=== PATIENT | female | born 1965 | race Caucasian/White ===

== ENCOUNTER 2024-08-01 12:42 | Observation (INO) | payer OTHER ==
[2024-08-01] VITALS (11 sets, daily range): BP systolic 125–142; BP diastolic 67–79
[~2024-08-01] VITALS: Ht 167.6 cm; Wt 83.9 kg
[2024-08-01] MEDS ORDERED: Ondansetron HCl 2 MG / ML 2ML Vial IV PRN ×2 (13:30→17:20)
[2024-08-01 13:46] LABS: BASOPHILS ABSOLUTE AUTO 0.06 K/mm3 (0.00-0.23); BASOPHILS PERCENT AUTO 0 % (0-2); EOSINOPHILS ABSOLUTE AUTO 0.05 K/mm3 (0.00-0.68); EOSINOPHILS PERCENT AUTO 0 % (0-6); Hematocrit 40.2 % (33.0-51.0); Hemoglobin 13.6 g/dL (11.5-16.0); IMMATURE GRAN ABSOLUTE AUTO 0.06 K/mm3 (0.00-0.10); IMMATURE GRAN PERCENT AUTO 0 % (0-1); LYMPHOCYTES ABSOLUTE AUTO 1.54 K/mm3 (0.84-5.20); LYMPHOCYTES PERCENT AUTO 11 % (21-46); MONOCYTES ABSOLUTE AUTO 1.06 K/mm3 (0.16-1.47); MONOCYTES PERCENT AUTO 7 % (4-13); Mean Corpuscular HGB 30.3 pg (26.0-34.0); Mean Corpuscular HGB Conc 33.8 g/dL (31.5-36.5); Mean Corpuscular Volume 90 fL (80-100); Mean Platelet Volume 8.9 fL (9.1-12.4); NEUTROPHILS ABSOLUTE AUTO 11.91 K/mm3 (1.96-9.15); NEUTROPHILS PERCENT AUTO 81 % (41-73); Platelet Count 235 K/mm3 (150-400); RDW Coefficient Variation 13.5 % (11.7-14.2); RDW Standard Deviation 44.1 fL (35.1-46.3); Red Blood Cell Count 4.49 M/mm3 (3.80-5.20); White Blood Cell Count 14.68 K/mm3 (4.00-11.30)
[2024-08-01] MEDS ORDERED: HYDROmorphone HCl/Pf 1MG SYR IV ONE ×2 (14:00→15:40)
[2024-08-01 14:06] LABS: Albumin, Blood 3.9 g/dL (3.4-5.0); Albumin/Globulin Ratio 0.9 (0.8-1.8); Bilirubin, Total 0.5 mg/dL (0.1-1.0); Bun/Creatinine Ratio 24.5 (12.0-20.0); Calcium, Blood 10.3 mg/dL (8.5-10.1); Creatinine, Blood 0.7 mg/dL (0.40-1.00); Globulin, Blood 4.4 g/dL (2.2-4.0); Total Protein, Blood 8.3 g/dL (6.4-8.2)
[2024-08-01] MEDS ORDERED: LOSA25 (14:16)
[2024-08-01] MEDS ORDERED: BACL10 (14:16)
[2024-08-01] MEDS ORDERED: Ibuprofen600 MG PO (14:16)
[2024-08-01] MEDS ORDERED: ALPR.5 PO (14:17)
[2024-08-01 15:03] LABS: Source, Urine Clean Catch
[2024-08-01 15:07] LABS: Appearance, Urine Clear (Clear); Bilirubin, Urine Neg (Neg); Blood, Urine Neg (Neg); Color, Urine Yellow (P-Yellow); Glucose Qualitative, Urine Neg (Neg); Ketones, Urine Neg (Neg); Leukocyte Esterase, Urine 1+ (Neg); Nitrite, Urine Neg (Neg); Protein, Urine Neg (Neg); Specific Gravity, Urine 1.015 (1.003-1.022); Urobilinogen, Urine NORM (Normal)
[2024-08-01 15:14] LABS: Bacteria Few /hpf; Red Blood Cells, Urine 0-2 /hpf (0-2); Squamous Epithelial Cells Few /hpf (Few)
[2024-08-01] MEDS ORDERED: Piperacillin/Tazobactam Sod 3.375 GM in NS 100 ML IV ONE (15:45)
[2024-08-01] MEDS ORDERED: FentaNYL Citrate 50 MCG/ML 2 ML Injection IV PRN (17:20)
[2024-08-01] MEDS ORDERED: HYDROcodone 5-APAP 325 TAB PO PRN (17:20)
[2024-08-01] MEDS ORDERED: Ondansetron 4 MG TAB PO PRN (17:20)
[2024-08-01] MEDS ORDERED: Lactated Ringer's 1,000 ML IV SCH (17:20)
[2024-08-01] MEDS ORDERED: Lactated Ringer's 1,000 ML IV ONE (17:28)
[2024-08-01] MEDS ORDERED: Ketorolac Tromethamine 30mg Vial IV PRN (17:30)
--- NOTE | 2024-08-01 18:11 | NUR ---
REPORT FROM ER NURSE. PATIENT WILL COME TO ROOM 209. SURGERY TONIGHT PER .
--- NOTE | 2024-08-01 18:42 | NUR ---
PT INTO PACU VIA GURNEY FROM ER AT 1635. APPEARS UNCOMFORTABLE C/O OF ABD PAIN. WARM BLANKETS PLACED. LR AT TKO. SURGICAL PACK COMPLETE. SURGICAL HAT/PAS SLEEVES/BP CUFF IN PLACE. REMOVED NECKLACE & PLACED IN MARKED CONTAINER. UPPER LIP PIERCING COVERED w/PAPER TAPE. REFUSAL TO REMOVE JEWELRY FOR TX SIGNED & DATED. AFEBRILE/HR TACY LOWER 100s. WAITINT FOR DR FINCH & SHAYY WHITLOCK CRNA TO SEE PT. WILL CONT TO MONITOR.
[2024-08-01] MEDS ORDERED: Midazolam HCl 1MG / ML 2ML Vial ONE (19:03)
[2024-08-01] MEDS ORDERED: FentaNYL Citrate 50 MCG/ML 2 ML Injection ONE (19:03)
[2024-08-01] MEDS ORDERED: Bupivacaine 0.5% HCl 5 MG/ML 30MLVIAL ONE (19:19)
[2024-08-01] MEDS ORDERED: propofoL 20 ML IV ONE (19:24)
--- NOTE | 2024-08-01 19:24 | NUR ---
TO OR 2 VIA [facility] AT 1925 IN STABLE CONDITION.
[2024-08-01] MEDS ORDERED: Sugammadex Sodium 200 MG/2ML SDV (100 MG/ML) ONE (19:25)
[2024-08-01] MEDS ORDERED: SuccINYLCHOLINE Chloride 100 MG/5 ML 5MLSYR ONE (19:25)
[2024-08-01] MEDS ORDERED: Phenylephrine HCl 100 MCG/ML-NS 10MLSYR (1MG/10ML) ONE (19:31)
--- NOTE | 2024-08-01 19:56 | NUR ---
08/01/241955 Dilan Hebert PT ON SCHEDULED ANTIBIOTICS
[2024-08-01] MEDS ORDERED: Ketorolac Tromethamine 30mg Vial ONE (20:19)
[2024-08-01] MEDS ORDERED: Dexamethasone Sod Phos 10 MG/ML 1ML VIAL ONE (20:19)
[2024-08-01] MEDS ORDERED: Ondansetron HCl 2 MG / ML 2ML Vial ONE (20:19)
[2024-08-01] MEDS ORDERED: Piperacillin/Tazobactam Sod 3.375 GM in NS 100 ML IV SCH (22:00)
[2024-08-01] MEDS ORDERED: AMOX875 (22:06)
[2024-08-01] MEDS ORDERED: TELM40 (22:07)
[2024-08-01] MEDS ORDERED: ROPI1 (22:07)
[2024-08-01] MEDS ORDERED: ESZO2 (22:09)
--- NOTE | 2024-08-01 23:41 | NUR ---
PAIN MEDICATION GIVEN PER EMAR.
[2024-08-02 04:29] VITALS: BP 122/79
--- NOTE | 2024-08-02 04:33 | NUR ---
PT FROM PACU AT 2100. PT HAD LOCALIZED PERFORATED APPY SURGERY LAST NIGHT. PT COMPLAINS OF GAS PAINS, UNABLE TO FLATULATE. PT ALSO COMPLAINS OF A HEADACHE. PT MEDICATED PER EMAR FEW TIMES THIS SHIFT. PT TOLERATING PO FLUIDS AND CLEARS. PT UP AND ABLE TO AMBULATE INDEPENDENTLY. 3 INCISIONS ON ABD STERI STRIPPED CDI. BED IN LOWEST POSITION AND CALL LIGHT WITHIN HER REACH. WILL CONTINUE TO MONITOR.
[2024-08-02 05:26] LABS: BASOPHILS ABSOLUTE AUTO 0.01 K/mm3 (0.00-0.23); BASOPHILS PERCENT AUTO 0 % (0-2); EOSINOPHILS PERCENT AUTO 0 % (0-6); Hematocrit 33.1 % (33.0-51.0); IMMATURE GRAN ABSOLUTE AUTO 0.04 K/mm3 (0.00-0.10); IMMATURE GRAN PERCENT AUTO 0 % (0-1); LYMPHOCYTES ABSOLUTE AUTO 0.78 K/mm3 (0.84-5.20); LYMPHOCYTES PERCENT AUTO 7 % (21-46); MONOCYTES ABSOLUTE AUTO 0.79 K/mm3 (0.16-1.47); MONOCYTES PERCENT AUTO 7 % (4-13); Mean Corpuscular HGB 30.1 pg (26.0-34.0); Mean Corpuscular HGB Conc 33.2 g/dL (31.5-36.5); Mean Corpuscular Volume 91 fL (80-100); Mean Platelet Volume 9.7 fL (9.1-12.4); NEUTROPHILS ABSOLUTE AUTO 9.12 K/mm3 (1.96-9.15); NEUTROPHILS PERCENT AUTO 85 % (41-73); Platelet Count 142 K/mm3 (150-400); RDW Coefficient Variation 13.5 % (11.7-14.2); RDW Standard Deviation 45.2 fL (35.1-46.3); Red Blood Cell Count 3.65 M/mm3 (3.80-5.20); White Blood Cell Count 10.74 K/mm3 (4.00-11.30)
[2024-08-02 05:46] LABS: Bun/Creatinine Ratio 19.2 (12.0-20.0); Calcium, Blood 9.3 mg/dL (8.5-10.1); Creatinine, Blood 0.73 mg/dL (0.40-1.00); Potassium, Blood 4.1 mmol/L (3.5-5.5)
[2024-08-02 08:05] VITALS: BP 110/73
--- NOTE | 2024-08-02 08:50 | NUR ---
PT MEDICATED PER EMAR WITH TWO HYDROCODONE 5MG/325 DR. FINCH ROUNDED ON PT, PLAN FOR DISCHARGE TODAY. CALL LIGHT IN REACH
[2024-08-02] MEDS ORDERED: AMOCLA250S PO (09:49)
[2024-08-02] MEDS ORDERED: HYDR1TAB94 PO (09:49)
--- NOTE | 2024-08-02 12:10 | NUR ---
NURSE NOTE PT ASSISTED TO PATIENT ENTERANCE, PT SISTER PICKED HER UP. PT HAD DISCHARGE PACKET IN HAND AND PERSONAL BELONGINGS.
== END 2024-08-02 12:01 | disposition home or self-care (01) ==
LOC: ER 12:42 → SURS 12:43
PROVIDERS: Emergency Medicine; ADMIT Surgery
PROC: 0DTJ4ZZ Resection of Appendix, Percutaneous Endoscopic Approach (ICD-10-PCS; principal; 2024-08-01 22:00)
DX: K35.32 Acute appendicitis with perforation, localized peritonitis, and gangrene, without abscess (principal); Z88.8 Allergy status to other drugs, medicaments and biological substances; Z79.899 Other long term (current) drug therapy
CPT/HCPCS: 36415; 74177; 80048; 80053; 81001; 83690; 84484; 85025; 87086; 88304; 93005; 93010; 96361; 96365-59; 96366; 96375; 96376; 99285-25; A9270; G0378; J0330; J1100; J1170; J1885; J2250; J2371; J2405; J2543; J2704; J3010; J7120; Q9967

== ENCOUNTER 2025-01-11 12:39 | Emergency (ER) | payer OTHER ==
[~2025-01-11] VITALS: Ht 167.6 cm; Wt 72.6 kg
[~2025-01-11 12:39] MED LIST: ALPR.5 PO; AMOCLA250S PO; AMOX875; BACL10; ESZO2; HYDR1TAB94 PO; Ibuprofen600 MG PO; LOSA25; ROPI1; TELM40
[2025-01-11] MEDS ORDERED: OxyCODONE 5 mg/Acetamin 325 mg TABLET PO ONE (14:30)
[2025-01-11] MEDS ORDERED: RX Prepack 6 Tabs Oxycodone 5mg UD ONE (15:50)
[2025-01-11] MEDS ORDERED: Percocet 5-3251 EACH PO (16:15)
== END 2025-01-11 16:30 | disposition home or self-care (01) ==
LOC: ER 12:39
DX: S42.021A Displaced fracture of shaft of right clavicle, initial encounter for closed fracture (principal); W01.0XXA Fall on same level from slipping, tripping and stumbling without subsequent striking against object, initial encounter; Z91.013 Allergy to seafood; Z91.018 Allergy to other foods; Z79.899 Other long term (current) drug therapy
CPT/HCPCS: 73030; 99284-25; A9270